=== PATIENT | female | born 1980 | race Caucasian/White ===

== ENCOUNTER 2022-05-17 13:08 | Emergency (ER) | payer BC, SELFPAY ==
[2022-05-17 13:09] VITALS: BP 145/96; PULSE 86; RESP 16; TEMP 36.6; O2SAT 99
--- NOTE | 2022-05-17 13:15 | DI.RAD_ITS ---
Exam(s) XR WRIST LT COMP NAVICULAR XR FOREARM LT EXAM: XR FOREARM LT CLINICAL HISTORY: fall. TECHNIQUE: 2D digital imaging was performed. Two views. COMPARISON: CR,XR XR WRIST LT COMP NAVICULAR from 05/17/2022 FINDINGS: BONES: Buckle fracture distal radial metaphysis. No visible separation at the articular surface. No additional fractures are seen in the carpal region. The more proximal portions of the radius and ul na appear intact. The elbow is unremarkable as visualized. No bony destructive lesion is seen. Visu alized portion of elbow and wrist joints are unremarkable. SOFT TISSUE: Swelling around distal radius. IMPRESSION: Nondisplaced distal radial fracture. DATA REPOSITORY: RADIATION DOSE DELIVERED:
--- NOTE | 2022-05-17 13:15 | DI.RAD_ITS ---
Exam(s) XR RIBS RT W PA LAT CHEST CLINICAL HISTORY: fall right rib pain. COMPARISON: No exams were available for comparison TECHNIQUE:: PA and lateral views of the chest and 2 views of the right ribs were performed. FINDINGS: LUNGS:Clear. No pleural abnormality seen. HEART: Normal. MEDIASTINUM: Normal. BONES: No displaced rib fracture is seen. No bony destructive lesion is seen. No acute spinal fractu re. Shoulders unremarkable as visualized. OTHER FINDINGS: None. IMPRESSION: 1. Unremarkable radiographic appearance of the right ribs. 2. No acute pulmonary findings.
[2022-05-17] MEDS: Ketorolac 10 MG TAB PO (13:49)
--- NOTE | 2022-05-17 14:01 | ED.GENADUL_ITS ---
Discharge Plan Disposition Patient Disposition: Home Discharge Details Clinical Impression: Distal radius fracture, left, Contusion of multiple sites, Abrasion, multiple sites Primary Care Provider: Niesha,Adrienne ED Provider: Robert Paul Home Meds and New Rx's Prescriptions: Continued escitalopram oxalate [Lexapro] 10 mg Tablet 10 mg PO DAILY escitalopram oxalate [Lexapro] 5 mg Tablet Discharge Instructions Instructions: Wrist Fracture in Adults (ED), Contusion in Adults (ED), Abrasion (ED) Additional Instructions: Please keep the provided wrist splint on at all times until you are seen and cleared by your orthopedist. You may apply ice to help with swelling and discomfort along with continued use of [id number] pain medication as discussed. If you develop any new or significant worsening of symptoms feel free to return to the emergency department for reassessment. Please follow-up with local orthopedist preferably in the next 1 to 2 weeks. Referrals: No,Local [Primary Care Provider] - (Please follow-up with your primary care provider as needed for reassessment or referral to orthopedics) Discharge Data Discharge Date/Time-TO BE ENTERED AT DEPARTURE: 05/17/22 15:44 Medical Decision Making Patient presenting the emergency department for chief complaint of fall with ski injury. She states that she hit some ice while skiing causing her to fall. She reports mild facial abrasions and contusion to left cheek, was helmeted and denies any loss of consciousness headache or neurological symptoms. Patient denies any neck pain. Does state mild right rib pain and that she got the wind knocked out of her. Most area of concern for patient is left wrist which she cannot move due to significant pain. Patient also has mild discomfort to left lower extremity is ambulatory weightbearing and states feels just bruised. Physical exam does show facial abrasions with ecchymosis to the left cheek but maxillary sinus is intact with no significant tenderness to palpation, palpation of facial bones reveals no tenderness otherwise so feel that patient's facial injuries are soft tissue, patient has no C-spine T or L-spine tenderness, mild mid axillary rib tenderness to anterior posterior compression along with p alpation over mid axillary ribs. Patient does have ecchymosis to mid tibia but is full weightbearing no other deformity is noted full range of motion and full weightbearing. Patient does have mild deformity to left wrist with inability for movement of distal radius and wrist. Hand and elbow are unremarkable on exam. Pulses are intact along with cap refill and sensory and motor function is intact distal to injury. We will plan on giving patient Toradol pending radiological imaging of chest and left upper extremity. At this time I do not feel that patient's symptoms and exam findings are clinically significant for left lower extremity fracture or facial bone fracture. We will continue to monitor. Reviewed radiological imaging which shows negative chest and rib series but does show a slight cortical irregularity on the dorsal aspect of the distal radius that is suspicious for nondisplaced fracture. This does correlate with patient's pain and discomfort. Did discuss with patient risk versus benefit of Velcro splinting versus Ortho-Glass. After full discussion and informing pat ient that standard is Ortho-Glass, shared decision-making was utilized and patient placed in Velcro thumb spica. Patient states she is comfortable taking [id number] pain medication along with application of ice as needed for further pain and discomfort. After discussion of diagnosis and plan of care patient has no further needs, questions, or concerns and states clear understanding to return to the emergency department for any worsening symptoms. This documentation was generated using [employer] dictation system, please disregard any oddities of phrase or misspellings. HPI General Mode of arrival: ambulatory . Date/Time Provider Initiated Documentation: 05/17/22 13:21 . Limitations to Documentation: no limitations . Information obtained by: patient and RN notes reviewed . History of Present Illness 42 year old F presents to the emergency department with the chief comp laint of ski injury, described as moderate, with intensity rated at 8. Quality is described as sharp, and is localized to the left and upper extremity. Patient started experiencing this hour(s) (1) and it has been constant. Immobilization improves symptom(s), Movement worsens symptoms . Patient did receive the following treatments prior to arrival, none Related Data Home Medications Medication Instructions Recorded Confirmed escitalopram oxalate 10 mg tablet 10 mg PO DAILY 05/17/22 05/17/22 (Lexapro) escitalopram oxalate 5 mg tablet mg 05/17/22 (Lexapro) Allergies Allergy/AdvReac Type Severity Reaction Status Date / Time No Known Allergies Allergy Verified 05/17/22 14:01 General Stated Complaint: Trauma ALEXA: 3 Review of Systems Constitutional Constitutional: Denies frequent falls and Denies headache(s) Eyes Eyes: Denies change in vision ENT Ears, Nose, Mouth, and Throat: Denies dizziness, Denies headache(s), Denies epistaxis and Denies neck pain Cardiovascular Cardiovascular: Denies chest pain, Denies syncope and Denies dyspnea Respiratory Respiratory: Denies pain on inspiration, Denies dyspnea and Reports other (Right chest wall pain) Gastrointestinal Gastrointestinal: Denies abdominal pain, Denies nausea and Denies vomiting Musculoskeletal Musculoskeletal: Reports as per HPI, Denies back pain, Reports arthralgias, Reports joint swelling, Reports limited range of motion and Denies neck pain Integumentary/Breasts Skin/Breast: Reports wounds Neurologic Neurologic: Denies confusion, Denies dizziness, Denies syncope, Denies frequent falls, Denies headache(s) and Denies paresthesias Psychiatric Psychiatric: Denies confusion PFSH All Active Problems (Updated 05/17/22 @ 14:48 by Robert Paul NP) Distal radius fracture, left (Acute) Contusion of multiple sites (Acute) Abrasion, multiple sites (Acute) Social History Smoking/Tobacco Use Status: Never Smoking risk assessment performed?: Yes Drug use: Occasionally Substance use type: marijuana Do you feel safe at home: Yes Do you feel safe in your relationship?: Yes Exam Const General: cooperative, no acute distress and not ill appearing Orientation: alert, awake and oriented x3 HENMT Head: no palpable skull fracture Ears: hearing grossly normal bilaterally and external ears normal General nose exam: external nose normal Face and sinus: face symmetric, abrasion, no crepitus, no maxillary instability and tenderness (Only directly over area of ecchymosis which is mild) Face images: 1. Abrasion 2. Abrasion 3. Abrasion 4. mild Ecchymosis Mouth: oral mucosae normal and moist mucous membranes Neck Neck: full ROM and nontender Chest Chest: normal inspection of the chest and localized rib tenderness with anteroposterior compression right mid-axillary line involving the 5th rib, involving the 6th rib and involving the 7th rib Resp Effort & Inspection: normal respiratory effort, able to speak in complete sentences and no respiratory distress Auscultation: clear to auscultation bilaterally Cardio Rate: regular rate Rhythm: regular rhythm Heart Sounds: S1 normal and S2 normal Pulses: normal peripheral pulses Back/Spine/Pelvis Cervical Spine: normal cervical lordosis, cervical ROM normal, No cervical spinal tenderness and No step off deformity Thoracic/Lumbar Spine: thoracic and lumbar spine normal to inspection, No paraspinal tenderness, No thoracic spinal tenderness and No lumbar spinal tenderness Skin General skin exam: no rashes or lesions noted Neuro General: patient alert, patient awake, patient oriented x3, moves all extremities and no focal motor deficits Sensory Exam: no sensory deficits noted Extrem General: normal gait Left upper extremity: elbow/forearm Details: abnormal ROM; no tenderness, wrist Details: tenderness Location: of the distal radius and of the anatomic snuffbox and abnormal ROM Details: pain with active ROM, pain with passive ROM and with range as follows (No ability for pronation or supination along with flexion ex tension due to significant pain); no swelling, no abrasions, no lacerations and no ecchymosis and hand Details: normal to inspection, normal capillary refill, neuromotor exam normal, neurosensory exam normal, tendon exam normal and normal ROM of fingers; no tenderness, no swelling, no abrasions and no ecchymosis Left lower extremity: lower leg Details: ecchymosis; no tenderness Course Vital Signs Vital signs: Vital Signs Temperature 36.6 C 05/17/22 13:09 Pulse 86 05/17/22 13:09 Respiratory Rate 16 05/17/22 13:09 Blood Pressure 145/96 H 05/17/22 13:09 Pulse Oximetry 99 05/17/22 13:09 Temperature 36.6 C 05/17/22 13:09 Temperature Source Oral 05/17/22 13:09 Pulse 86 05/17/22 13:09 Respiratory Rate 16 05/17/22 13:09 Blood Pressure 145/96 H 05/17/22 13:09 Blood Pressure Position Sitting 05/17/22 13:09 Pulse Oximetry 99 05/17/22 13:09 Oxygen Delivery Method Room Air 05/17/22 13:09 Oxygen Flow Rate 0 05/17/22 13:09 Pain Level 8 05/17/22 13:49 Comment ice after injury - denies otc medication 05/17/22 13:09
--- NOTE | 2022-05-17 14:27 | DI.VRAD_ITS ---
PROCEDURE INFORMATION: Exam: XR Left Forearm Exam date and time: 05/17/2022 2:15 PM Age: 42 years old Clinical indication: Injury or trauma; Other: Skiing accident; Blunt trauma (contusions or hematomas); Arm, lower; Left TECHNIQUE: Imaging protocol: Radiologic exam of the Left forearm. Views: 2 views. COMPARISON: No relevant prior studies available. FINDINGS: Bones/joints: Cortical irregularity of the dorsal aspect of the distal radius suspicious for nondisplaced fracture. Soft tissues: Normal. IMPRESSION: Cortical irregularity of the dorsal aspect of the distal radius suspicious for nondisplaced fracture. Dictated and Authenticated by: Keisha Bragg MD. Ordering:DIOGO Jones MD
--- NOTE | 2022-05-17 14:28 | DI.VRAD_ITS ---
PROCEDURE INFORMATION: Exam: XR Right Ribs Exam date and time: 05/17/2022 2:11 PM Age: 42 years old Clinical indication: Injury or trauma; Other: Skiing accident; Blunt trauma (contusions or hematomas); Rib area TECHNIQUE: Imaging protocol: Radiologic exam of the Right ribs. Views: 2 views. COMPARISON: No relevant prior studies available. FINDINGS: Bones/joints: Normal. Soft tissues: Normal. IMPRESSION: No acute findings. PROCEDURE INFORMATION: Exam: XR Chest Exam date and time: 05/17/2022 2:11 PM Age: 42 years old Clinical indication: Injury or trauma; Other: Skiing accident; Blunt trauma (contusions or hematomas); Rib area TECHNIQUE: Imaging protocol: Radiologic exam of the chest. Views: 2 views. COMPARISON: No relevant prior studies available. FINDINGS: Lungs: Unremarkable. No consolidation. Pleural spaces: Unremarkable. No pleural effusion. No pneumothorax. Heart/Mediastinum: Unremarkable. No cardiomegaly. Bones/joints: Unremarkable. IMPRESSION: No acute findings. Dictated and Authenticated by: Keisha Bragg MD. Ordering:DIOGO Jones MD
--- NOTE | 2022-05-17 14:28 | DI.VRAD_ITS ---
PROCEDURE INFORMATION: Exam: XR Left Wrist Exam date and time: 05/17/2022 2:17 PM Age: 42 years old Clinical indication: Injury or trauma; Other: Skiing accident; Blunt trauma (contusions or hematomas); Wrist; Left TECHNIQUE: Imaging protocol: Radiologic exam of the Left wrist. Views: 3 or more views. COMPARISON: CR XR FOREARM LT 05/17/2022 2:15 PM FINDINGS: Bones/joints: Nondisplaced cortical fracture dorsal aspect of the distal left radius. Soft tissues: Soft tissue swelling. IMPRESSION: Nondisplaced cortical fracture dorsal aspect of the distal left radius. Dictated and Authenticated by: Keisha Bragg MD. Ordering:DIOGO Jones MD
[2022-05-17 15:42] VITALS: BP 127/82; PULSE 70; RESP 16; TEMP 36.9; O2SAT 99
== END 2022-05-17 15:44 | disposition home or self-care (01) ==
PROVIDERS: Emergency Provider Nurse Practitioner Family
DX: S52.502A Unspecified fracture of the lower end of left radius, initial encounter for closed fracture (principal); S80.12XA Contusion of left lower leg, initial encounter; S00.12XA Contusion of left eyelid and periocular area, initial encounter; S00.83XA Contusion of other part of head, initial encounter; S00.31XA Abrasion of nose, initial encounter; W22.8XXA Striking against or struck by other objects, initial encounter; W19.XXXA Unspecified fall, initial encounter; Y93.23 Activity, snow (alpine) (downhill) skiing, snowboarding, sledding, tobogganing and snow tubing
CPT/HCPCS: 29130; 81025; 99284; 71046; 71100; 73090; 73110